=== PATIENT | female | born 1955 ===

== ENCOUNTER → 2017-07-19 | Outpatient (CLI) | payer BC | LOC: GMAM 12:18 | PROVIDERS: ATTEND Family Medicine | DX: M25.50 Pain in unspecified joint (principal); E03.9 Hypothyroidism, unspecified; R53.83 Other fatigue ==

== ENCOUNTER → 2017-08-17 | Outpatient (CLI) | payer BC | LOC: LAB.O 14:32 | PROVIDERS: ATTEND Family Medicine | DX: K92.1 Melena (principal) ==

== ENCOUNTER → 2017-08-26 | Outpatient (CLI) | payer BC | LOC: GMAM 13:57 | PROVIDERS: ATTEND Family Medicine | DX: K92.1 Melena (principal) ==

== ENCOUNTER → 2017-10-04 | Outpatient (CLI) | payer BC ==
--- NOTE | 2017-10-06 09:57 | MAM ---
EXAM DESCRIPTION: 3D Screening BILATERAL : Digital Mammography. CLINICAL HISTORY: 62 years Female SCREEN . No complaints. Mother with breast cancer. Childbirth. Postmenopausal. No HRT. COMPARISON: Baseline study at this facility.. No prior reports available. TECHNIQUE: Bilateral CC and MLO projection full-field images, 3-D tomosynthesis digital mammographic technique. CAD not utilized FINDINGS: The breast parenchymal density pattern is: Scattered areas of fibroglandular density. No skin thickening or nipple retraction. Multiple bilateral nodular densities. Bilateral solitary microcalcifications. The largest mass density is in the middle third of the left breast at the 930 clock position 7 cm from the nipple. Largest mass density in the right breast is at the 900 clock position 4 cm the nipple. No suspicious microcalcifications bilaterally. IMPRESSION: BI-RADS CATEGORY: 0 - INCOMPLETE- Need additional imaging evaluation. FOLLOW-UP: Recall for additional imaging: Bilateral 3-D tomosynthesis full field LM images. Bilateral targeted breast ultrasound to follow.. Written communication concerning the IMPRESSION and Follow-up, will be mailed to the patient and referring health care provider. Electronically signed by: Tyrell Vance MD 10/06/2017 9:56 AM CDT
== END ==
LOC: MAMMO 09:30
PROVIDERS: ATTEND Family Medicine
DX: Z12.31 Encounter for screening mammogram for malignant neoplasm of breast (principal)

== ENCOUNTER → 2017-10-12 | Outpatient (CLI) | payer BC ==
--- NOTE | 2017-10-13 08:02 | US ---
EXAM DESCRIPTION: Breast,Bilateral: Ultrasound CLINICAL HISTORY: 62 yearsFemaleABNORMAL MAMMO COMPARISON: Digital diagnostic mammography bilateral breast this visit. Screening bilateral mammography 10/04/2017. TECHNIQUE: Transcutaneous scanning of the bilateral breast utilizing montalvo-scale and Doppler modes. Scanning performed by the aviation operations specialist and Dr. Vance. FINDINGS: Scanning at the right breast 1200 clock position 5 cm from the nipple. Hypoechoic to anechoic structure with well-defined solis, parallel orientation, and posterior enhancement features. Nonvascular. Dimensions are 4.4 x 2.8 mm. No distinct solid mass in the right breast. No large calcifications or parenchymal edema. No overlying skin changes. No abnormal vascularity. Scanning left breast 900 clock position, from 7 cm from the nipple to the nipple. No distinct solid mass or cyst. No parenchymal edema or large calcifications. No overlying skin changes. No abnormal vascularity. IMPRESSION: 1. Bi-Rads Category 2: Benign. 2. Please refer to bilateral 3-D diagnostic mammographic examination and report on this visit. The FINDINGS and the FOLLOW-UP plan were reviewed in person with the patient after the examination. Written communication explaining the IMPRESSION and FOLLOW-UP will be mailed to the patient and referring care provider. Electronically signed by: Tyrell Vance MD 10/13/2017 8:01 AM [employer]
--- NOTE | 2017-10-13 09:14 | MAM ---
EXAM DESCRIPTION: 3D Diagnostic, Bilateral: Digital Mammography CLINICAL HISTORY: 62 yearsFemaleABNORMAL MAMMO bilateral mass densities or focal asymmetries in the breasts. Previous diagnostic mammograms 4 cysts in the left breast.. COMPARISON: 3-D digital screening bilateral mammography October 04, 2017.. Bilateral targeted breast ultrasound following this examination. Report from prior examination also reviewed. TECHNIQUE: Bilateral LM projection full-field images, 3-D tomosynthesis digital mammographic technique. CAD not utilized. FINDINGS: The breast parenchymal density pattern is: Scattered areas of fibroglandular density. No skin thickening or nipple retraction focal asymmetry or mass density with lobulated borders approximately 6 cm from the nipple at the 12:30 clock position right breast. Similar appearing mass with well-defined borders approximately 7 cm from the nipple at the 830 clock position. Ultrasound: Scanning at the right breast 1200 clock position 5 cm from the nipple. Hypoechoic to anechoic structure with well-defined solis, parallel orientation, and posterior enhancement features. Nonvascular. Dimensions are 4.4 x 2.8 mm. No distinct solid mass in the right breast. No large calcifications or parenchymal edema. No overlying skin changes. No abnormal vascularity. Scanning left breast 900 clock position, from 7 cm from the nipple to the nipple. No distinct solid mass or cyst. No parenchymal edema or large calcifications. No overlying skin changes. No abnormal vascularity. IMPRESSION: BI-RADS CATEGORY: 2 - BENIGN FINDINGS. FOLLOW UP: Return to routine digital bilateral screening, one year interval from September 2017. The FINDINGS and the FOLLOW-UP plan were reviewed in person with the patient after the examination. Written communication explaining the IMPRESSION and FOLLOW-UP will be mailed to the patient and referring care provider. According to the [employer], yearly mammograms are recommended starting at age 40 and continuing as long as a woman is in good health. Any breast change noted on a breast self-exam should be reported promptly to the patient's healthcare provider. Breast MRI is recommended for women with an approximately 20-25% or greater lifetime risk of breast cancer, including women with a strong family history of breast or ovarian cancer and women who have been treated for Hodgkin's disease. A negative mammographic report should not delay tissue diagnosis in patients with significant clinical history or physical findings. Extremely dense breast tissue limits the sensitivity of digital mammography. Electronically signed by: Tyrell Vance MD 10/13/2017 9:12 AM CDT
== END ==
LOC: MAMMO 10:00
PROVIDERS: ATTEND Family Medicine
DX: R92.8 Other abnormal and inconclusive findings on diagnostic imaging of breast (principal)
CPT/HCPCS: 76641; 77066; G0279

== ENCOUNTER → 2018-02-08 | Outpatient (CLI) | payer BC | LOC: GMAM 12:23 | PROVIDERS: ATTEND Family Medicine | DX: E03.9 Hypothyroidism, unspecified (principal) ==

== ENCOUNTER → 2018-03-05 | Outpatient (CLI) | payer BC | LOC: SL 19:11 | PROVIDERS: ATTEND Internal Medicine | DX: G47.33 Obstructive sleep apnea (adult) (pediatric) (principal) ==

== ENCOUNTER → 2018-09-22 | Outpatient (CLI) | payer BC ==
--- NOTE | 2018-09-22 13:48 | CT ---
EXAM DESCRIPTION: Abdoment/Pelvis w/o Contrast CLINICAL HISTORY: HEMATURIA COMPARISON: None Available TECHNIQUE: CT of the abdomen and Pelvis was performed without IV contrast. This exam was performed according to our departmental dose-optimization program, which includes automated exposure control, adjustment of the mA and/or kV according to patient size and/or use of iterative reconstruction technique. FINDINGS: Lung bases:Unremarkable. Abdominal aorta and branches: No aneurysm. IVC/Portal Vein:Normal. Ascites:None. Pneumoperitoneum:None. Adenopathy:None. Omentum:Normal. Distal esophagus: Small hiatal hernia. Stomach:Unremarkable. Small bowel/mesentery:No wall thickening or dilation. No mesenteric inflammation. Liver: 2.3 cm cyst in the anterior segment of the right hepatic lobe with a small round low density lesion elsewhere in the right hepatic lobe too small to characterize but likely representing a cyst. Gallbladder: Surgically absent. Spleen:No splenomegaly or focal splenic lesion. Pancreas:No mass, pancreatic duct dilation or peripancreatic inflammation/fluid. Adrenals:No adrenal nodule. Kidneys/ureters: No left or right-sided urinary tract calculus, hydronephrosis or perinephric inflammation. No bladder wall thickening or bladder calcification. Bladder:No wall thickening or calcification. Reproductive organs:Unremarkable for patient's age. Colon: Colonic diverticulosis without diverticulitis. Appendix: Surgically absent. Bones: S-shaped scoliosis of the thoracolumbar spine only partially visualized. Abdominal Wall: Small uncomplicated fat-containing umbilical hernia. IMPRESSION: No urinary tract calculus, bladder wall thickening, renal mass or additional abnormality to explain hematuria. Colonic diverticulosis without diverticulitis and other nonacute findings as detailed above. Electronically signed by: Itz Moffett MD 09/22/2018 1:46 PM CDT
== END ==
LOC: CT 07:56
PROVIDERS: ATTEND Family Medicine
DX: K57.30 Diverticulosis of large intestine without perforation or abscess without bleeding (principal); R31.0 Gross hematuria

== ENCOUNTER → 2018-10-10 | Outpatient (CLI) | payer BC ==
--- NOTE | 2018-10-11 19:53 | MAM ---
EXAM DESCRIPTION: 3D Screening BILATERAL : Digital Mammography. CLINICAL HISTORY: 63 years Female ANNUAL SCREENING . No complaints. No personal history of breast cancer. Mother with breast cancer at age 58. Childbirth. Postmenopausal 5+ years. No HRT. Lifetime risk of developing breast cancer (Tyrer-Cuzick model)(%): 12.8. COMPARISON: Bilateral screening digital breast tomosynthesis 10/04/2017. Bilateral diagnostic digital breast tomosynthesis 10/12/2017. TECHNIQUE: Bilateral CC and MLO projection full-field images, digital tomosynthesis mammographic technique. Bilateral digital 2-D full-field MLO images. CAD not available for tomosynthesis or 2-D images. FINDINGS: The breast parenchymal density pattern is: Scattered areas of fibroglandular density. No skin thickening or nipple retraction. Mostly nodular-type fibroglandular tissues bilaterally. Bilateral axillary lymph nodes. No new focal, stellate mass or density, focal asymmetry , and no suspicious microcalcifications bilaterally. Stable mammograms compared to prior screening study. IMPRESSION: Benign exam. BIRAD CATEGORY: 2 BENIGN FINDINGS. RECOMMENDATIONS: FOLLOW UP: Routine digital bilateral mammographic screening, one year interval from September 2018. Written communication explaining the IMPRESSION and follow-up, will be mailed to the patient and referring health care provider. According to the [employer], yearly mammograms are recommended starting at age 40 and continuing as long as a woman is in good health. Any breast change noted on a breast self-exam should be reported promptly to the patient's healthcare provider. Breast MRI is recommended for women with an approximately 20-25% or greater lifetime risk of breast cancer, including women with a strong family history of breast or ovarian cancer and women who have been treated for Hodgkin's disease. A negative mammographic report should not delay tissue diagnosis in patients with significant clinical history or physical findings. Extremely dense breast tissue limits the sensitivity of digital mammography. Electronically signed by: Tyrell Vance MD 10/11/2018 7:51 PM CDT
== END ==
LOC: MAMMO 09:07
PROVIDERS: ATTEND Family Medicine
DX: Z12.31 Encounter for screening mammogram for malignant neoplasm of breast (principal)

== ENCOUNTER → 2019-02-12 | Outpatient (CLI) | payer BC | END | disposition home or self-care (01) | LOC: GMAM 10:47 | PROVIDERS: ATTEND Family Medicine | DX: E03.9 Hypothyroidism, unspecified (principal) ==

== ENCOUNTER → 2019-08-22 | Outpatient (CLI) | payer BC | LOC: GMAM 11:12 | PROVIDERS: ATTEND Family Medicine | DX: E03.9 Hypothyroidism, unspecified (principal); I10 Essential (primary) hypertension ==

== ENCOUNTER → 2020-02-19 | Outpatient (CLI) | payer BC | LOC: GMAM 10:37 | PROVIDERS: ATTEND Family Medicine | DX: E03.9 Hypothyroidism, unspecified (principal); I10 Essential (primary) hypertension ==

== ENCOUNTER → 2020-05-08 | Outpatient (CLI) | payer BC ==
--- NOTE | 2020-05-09 15:49 | MAM ---
EXAM DESCRIPTION: 3D Screening BILATERAL : Digital Mammography. CLINICAL HISTORY: 64 years Female SCREEN . No complaints. Mother with breast cancer at age 57. Menarche age 13. Childbirth age 21. Menopause age 54. No HRT.. Lifetime risk of developing breast cancer (Tyrer-Cuzick model)(%): 12.4. COMPARISON: Bilateral screening digital breast tomosynthesis September 2018 and September 2017 TECHNIQUE: Bilateral CC and MLO projection full-field images, digital tomosynthesis mammographic technique. Bilateral digital 2-D full-field MLO images. CAD available for 2-D images. FINDINGS: The breast parenchymal density pattern is: Scattered areas of fibroglandular density. Axillary nodes. Solitary microcalcifications. Nodular type of fibroglandular density bilaterally is Stable. Groups of benign type calcifications. No skin thickening or nipple retraction No new focal, stellate mass or density, focal asymmetry , and no suspicious microcalcifications bilaterally. Stable mammograms compared to prior study. IMPRESSION: Benign exam. BIRAD CATEGORY: 2 BENIGN FINDINGS. RECOMMENDATIONS: FOLLOW UP: Routine digital bilateral mammographic screening, one year interval from April 2020. Written communication explaining the IMPRESSION and follow-up, will be mailed to the patient and referring health care provider. According to the [employer], yearly mammograms are recommended starting at age 40 and continuing as long as a woman is in good health. Any breast change noted on a breast self-exam should be reported promptly to the patient's healthcare provider. Breast MRI is recommended for women with an approximately 20-25% or greater lifetime risk of breast cancer, including women with a strong family history of breast or ovarian cancer and women who have been treated for Hodgkin's disease. A negative mammographic report should not delay tissue diagnosis in patients with significant clinical history or physical findings. Extremely dense breast tissue limits the sensitivity of digital mammography. Electronically signed by: Tyrell Vance MD 05/09/2020 3:47 PM [employer]
== END ==
LOC: MAMMO 08:44
PROVIDERS: ATTEND Family Medicine
DX: Z12.31 Encounter for screening mammogram for malignant neoplasm of breast (principal)